=== PATIENT | female | born 1965 | race Caucasian/White ===

== ENCOUNTER 2023-09-21 07:58 | Day surgery (SDC) | payer BC ==
[~2023-09-21 07:58] MED LIST: Lactated Ringers 1,000 ML IV SCH
[2023-09-21] MEDS ORDERED: Propofol 200 MG/20 ML SDV ONE ×2 (10:09→10:34)
[2023-09-21] MEDS ORDERED: fentaNYL 100 MCG/2 ML SDV ONE (10:09)
== END 2023-09-21 12:13 | disposition home or self-care (01) ==
LOC: VM.SDS 07:58
PROVIDERS: ATTEND Family Medicine
DX: Z12.11 Encounter for screening for malignant neoplasm of colon (principal); D12.0 Benign neoplasm of cecum; D12.2 Benign neoplasm of ascending colon; D12.3 Benign neoplasm of transverse colon; D12.8 Benign neoplasm of rectum; K57.30 Diverticulosis of large intestine without perforation or abscess without bleeding; E03.9 Hypothyroidism, unspecified; J45.909 Unspecified asthma, uncomplicated; F32.A Depression, unspecified; E66.9 Obesity, unspecified; Z68.30 Body mass index [BMI] 30.0-30.9, adult; Z90.710 Acquired absence of both cervix and uterus; Z88.5 Allergy status to narcotic agent; Z88.8 Allergy status to other drugs, medicaments and biological substances; Z79.899 Other long term (current) drug therapy
CPT/HCPCS: 00811; J2704; J3010; J7120